=== PATIENT | female | born 1990 | race Caucasian/White ===

== ENCOUNTER 2023-03-23 20:32 | Emergency (ER) | payer OTHER ==
[~2023-03-23] VITALS: Ht 154.9 cm; Wt 72.6 kg
[2023-03-23 20:36] VITALS: O2SAT 98
[2023-03-23] MEDS ORDERED: PREDNISONE20 MG PO (21:07)
[2023-03-23] MEDS ORDERED: NYSTATIN-TRIAMC15 G1 TOP (21:07)
[2023-03-23] MEDS ORDERED: CLEOCIN HCL300 MG PO (21:07)
[2023-03-23] MEDS ORDERED: PEPCID20 MG PO (21:07)
[2023-03-23] MEDS ORDERED: BENADRYL25 M1 PO (21:07)
== END 2023-03-23 21:47 | disposition home or self-care (01) ==
LOC: FSED 20:36
DX: N61.0 Mastitis without abscess (principal)
CPT/HCPCS: 99283